=== PATIENT | male | born 1950 | race Caucasian/White ===

== ENCOUNTER → 2021-03-09 | Day surgery (SDC) | payer MEDICARE ==
[~2021-03-09] MED LIST: ASPI-1450 PO; CHOL-35 PO; CLOP75TA60 PO; LISI-894 PO; METO-558 PO; ROSU20TA73 PO; SACC250C9 PO; SODIUM CHLORIDE 0.9% 1,000 ML IV ONE; ZINC50TA71 PO
[2021-03-09 11:04] LABS: COVID AG,FIA SOURCE NASAL SWAB
== END | disposition home or self-care (01) ==
LOC: CATHLAB 14:30
PROVIDERS: ATTEND Internal Medicine Cardiovascular Disease
DX: I25.10 Atherosclerotic heart disease of native coronary artery without angina pectoris (principal); Z53.8 Procedure and treatment not carried out for other reasons; U07.1 COVID-19; I10 Essential (primary) hypertension; I25.2 Old myocardial infarction
CPT/HCPCS: 93005; C9803

== ENCOUNTER → 2021-03-25 | Day surgery (SDC) | payer MEDICARE ==
[2021-03-23 12:25] LABS: COVID AG,FIA SOURCE NASOPHARYNGEAL
[2021-03-23 12:33] LABS: BASOPHILS % (AUTO) 0.7 % (0.0-2.0); EOSINOPHILS % (AUTO) 1.7 % (1.0-6.0); HEMATOCRIT 46.6 % (41-53); LYMPHOCYTES # (AUTO) 2.4 K/uL (1.0-4.8); LYMPHOCYTES % (AUTO) 28.2 % (22.0-44.0); MEAN CORPUSCULAR HEMOGLOBIN 29.2 pg (26.0-34.0); MEAN CORPUSCULAR HGB CONC 34.3 G/dL (31.0-37.0); MEAN CORPUSCULAR VOLUME 85 fL (80-100); MONOCYTES # (AUTO) 0.8 K/uL (0.1-1.0); MONOCYTES % (AUTO) 9.3 % (2.0-9.0); NEUTROPHILS # (AUTO) 5.2 K/uL (1.8-7.7); NEUTROPHILS % (AUTO) 60.1 % (40.0-70.0); PLATELET COUNT (AUTO) 369 K/uL (150-450); RED BLOOD CELL COUNT(AUTO) 5.48 MIL/uL (4.50-5.90); RED CELL DISTRIBUTION WIDTH 13.7 % (11.5-14.5)
[2021-03-23 12:38] LABS: ANION GAP 8 mmol/L (8-16); CARBON DIOXIDE 26 mmol/L (22-29); CHLORIDE 107 mmol/L (98-107); CREATININE 0.98 mg/dL (0.60-1.30); GLOMERULAR FILTR. RATE CALC > 60 mL/min (>60); GLUCOSE,RANDOM 105 mg/dL (70-110); POTASSIUM 4.5 mmol/L (3.5-5.1); SODIUM SERUM 141 mmol/L (136-145); UREA NITROGEN, BLOOD 20 mg/dL (7-18)
[2021-03-23 12:43] LABS: PROTHROMBIN TIME 10.4 SEC (9.4-11.6)
[~2021-03-25] VITALS: Ht 182.9 cm; Wt 84.1 kg
[~2021-03-25] MED LIST changes: +ACETAMINOPHEN 500 MG TABLET PO PRN; +DIAZEPAM 10 MG TABLET PO STA; +DiphenhydrAMINE HCL 50 MG CAPSULE PO STA; +FentaNYL CITRATE PF 100 MCG/2 ML VIAL IVP ONE; +FentaNYL CITRATE PF 100 MCG/2 ML VIAL ONE; +HEPARIN SODIUM 1000 UNITS/NS 1,000 ML IARTER ONE; +HEPARIN SODIUM 1000 UNITS/NS 1,000 ML ONE; +HYDROCODONE/ACETAMINOPHEN 5-325 MG TABLET PO PRN; +IOHEXOL 300 MG/ML 100 ML VIAL ONE; +IOHEXOL 300 MG/ML 150 ML VIAL IARTER ONE; +IOHEXOL 300 MG/ML 150 ML VIAL ONE; +IOHEXOL 300 MG/ML 50 ML VIAL ONE; +LIDOCAINE 1% 30 ML/SOD BICARB 8.4% 4 ML SQ ONE; +LIDOCAINE/PF 1% 30 ML VIAL ONE; +MIDAZOLAM HCL 2 MG/2 ML VIAL IVP ONE; +MIDAZOLAM HCL 2 MG/2 ML VIAL ONE; +NITROGLYCERIN 50 MG/D5% WATER 250 ML ONE; +SODIUM BICARBONATE 50 MEQ/50 ML VIAL ONE; +SODIUM CHLORIDE 0.9% 1,000 ML ONE; +SODIUM CHLORIDE 0.9% 500 ML IV ONE; +VERAPAMIL HCL 2.5 MG/ML 2 ML VIAL ONE
[2021-03-25 10:57] VITALS: BP 156/73
[2021-03-25 11:56] VITALS: BP 121/52
== END | disposition home or self-care (01) ==
LOC: CATHLAB 07:57
PROVIDERS: ATTEND Internal Medicine Cardiovascular Disease
DX: R94.39 Abnormal result of other cardiovascular function study (principal); I25.10 Atherosclerotic heart disease of native coronary artery without angina pectoris; I48.0 Paroxysmal atrial fibrillation; E78.2 Mixed hyperlipidemia; I25.5 Ischemic cardiomyopathy; I10 Essential (primary) hypertension; I65.23 Occlusion and stenosis of bilateral carotid arteries; Z87.891 Personal history of nicotine dependence; Z79.899 Other long term (current) drug therapy; Z79.82 Long term (current) use of aspirin; Z95.5 Presence of coronary angioplasty implant and graft; Z20.822 Contact with and (suspected) exposure to COVID-19
CPT/HCPCS: 36415; 80048; 85025; 85610; 85730; 87426; 93458; 99152; C1760; C9803; J1644; J2250; J3010; J3490 ×4; J7030; Q9967 ×2